=== PATIENT | male | born 1965 | race Caucasian/White ===

== ENCOUNTER 2022-04-15 08:18 | Emergency (ER) | payer OTHER ==
[~2022-04-15] VITALS: Ht 185.4 cm; Wt 122.5 kg
[2022-04-15 08:18] VITALS: BP 188/86
--- NOTE | 2022-04-15 08:18 | NUR ---
ARRIVAL PT PRESENTS TO THE ED VIA AMBULATORY WITH C/O POSSIBLE ALLERGIC REACTION. PT STATES HE RECEIVED A TOPICAL CREAM ON WEDNESDAY FOR POSSIBLE SCABIES, PT STATES HE USED THE CREAM ON WEDNESDAY AND HIS HANDS STARTED TO SWELL, HE STATES HE LAST USED TO THE CREAM ON WEDNESDAY. PT VITALS OBTAINED, PT STABLE, NOTIFIED OF PT ARRIVAL.
[2022-04-15] MEDS ORDERED: PEPCID PO STA (08:56)
[2022-04-15] MEDS ORDERED: SOLU-MEDROL IM STA (08:56)
[2022-04-15] MEDS ORDERED: BENADRYL PO STA (08:56)
--- NOTE | 2022-04-15 08:59 | ER.PDOC ---
General Chief Complaint: Allergic Reaction Stated Complaint: ALLERGIC REACTION Time seen by MD: 08:52 Source: patient Exam Limitations: no limitations History of Present Illness Initial Comments Patient presented with possible allergic reaction. He used permethrin cream to apply to both upper and lower extremities for scabies about 5 days ago. Since then he has had some mild swelling of both upper and lower extremities. No urticarial rash. No tongue or facial swelling. No difficulty breathing. Severity: mild Associated Symptoms: itching, hands swollen Identified Cause: yes Vital Signs First Vital Signs Date Time Temp Pulse Resp B/P (MAP) Pulse Ox O2 Delivery O2 Flow Rate FiO2 04/15/22 08:18 97.9 58 16 98 04/15/22 08:18 188/86 (120) Room Air* 0 21 Last Vital Signs Date Time Temp Pulse Resp B/P (MAP) Pulse Ox O2 Delivery O2 Flow Rate FiO2 04/15/22 08:18 97.9 58 16 188/86 (120) 98 Room Air* 0 21 Past Medical History Medical History: hypertension Surgical History: no surgical history Family History Significant Family History: no pertinent family hx Social History Smoking: non-smoker Alcohol Use: none Drug Use: none Constitutional: no symptoms reported EENTM: no symptoms reported Respiratory: no symptoms reported Cardiovascular: no symptoms reported Gastrointestinal: no symptoms reported Musculoskeletal: see HPI Skin: see HPI All Other Systems: Reviewed and Negative Physical Exam General Appearance: alert, no distress HEENT: ENT nml inspection, pharynx, voice nml Skin: no rash, nml color, warm/dry Extremities: non-tender, edema (mild both forearms and hands, no redness or erytherma) Neck: nml inspection Respiratory: no resp. distress, breath sounds nml CVS: reg. rate & rhythm, heart sounds nml Abdomen: non-tender, no organomegaly NEURO/PSYCH: oriented x 3, CN's nml as tested, motor nml, sensation nml, mood/affect nml Results/Orders Results/Orders Vital Signs Date Time Temp Pulse Resp B/P (MAP) Pulse Ox O2 Delivery O2 Flow Rate FiO2 04/15/22 08:18 97.9 58 16 188/86 (120) 98 Room Air* 0 21 04/15/22 08:18 97.9 58 16 04/15/22 08:18 97.9 58 16 98 Progress Progress Patient received Benadryl, Pepcid and Solumedrol ER DEPART Departure Time of Disposition: 08:55 Disposition: 01 HOME / SELF CARE / HOMELESS Impression: Primary Impression: Acute allergic reaction Condition: Stable Referrals: PCP,UNKNOWN (PCP) PRIMARY CARE PROVIDER Additional Instructions: Prednisone Benadryl Pepcid Follow-up with your PCP in 2 to 3 days Return to ED if worsening or concerns Duration or Time Spent with Pa: 10 min Problem Qualifiers Primary Impression: Acute allergic reaction Encounter type: initial encounter Qualified Codes: T78.40XA - Allergy, unspecified, initial encounter KAI CHANG MD Apr 15, 2022 08:59
[2022-04-15] MEDS ORDERED: BENADRYL PO ONE (09:04)
[2022-04-15] MEDS ORDERED: PEPCID ONE (09:04)
[2022-04-15] MEDS ORDERED: SOLU-MEDROL ONE (09:04)
[2022-04-15 09:15] VITALS: BP 178/103
== END 2022-04-15 09:15 | disposition home or self-care (01) ==
LOC: ER 08:18
DX: T78.40XA Allergy, unspecified, initial encounter (principal); B86 Scabies; I10 Essential (primary) hypertension; X58.XXXA Exposure to other specified factors, initial encounter
CPT/HCPCS: 96372; 99283; J2930; Q0163